=== PATIENT | female | born 2000 | race Caucasian/White ===

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

== ENCOUNTER 2020-09-12 19:42 | Emergency (ER) | payer OTHER, SELFPAY ==
[~2020-09-12] VITALS: Ht 167.6 cm; Wt 89.4 kg
[2020-09-12 19:45] VITALS: Ht 167.6 cm; Wt 89.4 kg
[2020-09-12 22:53] VITALS: BP 129/60
== END 2020-09-12 22:53 | disposition home or self-care (01) ==
LOC: ED 19:42
DX: J06.9 Acute upper respiratory infection, unspecified (principal); J45.909 Unspecified asthma, uncomplicated; Z20.828 Contact with and (suspected) exposure to other viral communicable diseases
CPT/HCPCS: U0003